=== PATIENT | female | born 1955 | race Caucasian/White ===

== ENCOUNTER 2017-03-19 20:43 | Inpatient (IN) | payer OTHER, MEDICARE ==
[~2017-03-19] VITALS: Ht 154.9 cm; Wt 92.9 kg
[~2017-03-19 20:43] MED LIST: ACETAMINOPHEN/HYDROcodone 325 MG/10 MG TAB PO PRN; ACETAMINOPHEN/HYDROcodone 325 MG/5 MG TAB PO PRN; ASPI81CH CHEW; ATOR20TA15 PO; FLUO20CA12 PO; FOLI400T PO; LEVEMIR SQ; LEVO125T4 PO; LIOT5TAB3 PO; LYRI150C PO; MAGNESIUM HYDROXIDE SUSP 30 ML CUP PO PRN; MORP1TAB27 PO; NALOXONE HCL 0.4 MG/ML AMP IV PUSH PRN; NOVOLOGSS; ONDANSETRON HCL 4 MG/2 ML VIAL IVP PRN; SODIUM CHLORIDE 0.9% FLUSH 10 ML FLUSH IV FLUSH PRN; TIZA6CAP3 PO; TRAM50TA PO; VENTAER INH; Vancomycin Consult Pharmacy 1 EA OTHER SCH; ZOLP10TA3 PO
[2017-03-19 20:50] VITALS: BP 140/88; PULSE 83; RESP 20; TEMP 98.1; O2SAT 99
[2017-03-19 21:15] VITALS: O2SAT 98
[2017-03-19] MEDS: CEFEPIME INJ 1,000 MG in SODIUM CHLORIDE 0.9% INJ 100 ML IV SCH (22:30)
[2017-03-19] MEDS: ENOXAPARIN SODIUM 40 MG/0.4 ML SYRINGE SQ SCH (22:30)
[2017-03-19] MEDS: SODIUM CHLORIDE 0.9% FLUSH 10 ML FLUSH IV FLUSH SCH (22:30)
[2017-03-19] MEDS: DOCUSATE SODIUM 50 MG/SENNA 8.6 MG TAB PO SCH (22:31)
[2017-03-19] MEDS ORDERED: PREGABALIN 75 MG CAP PO ONE (23:45)
[2017-03-19] MEDS ORDERED: DEXTROSE 50% IN WATER 50 ML VIAL(D50) IV PUSH PRN (23:45)
[2017-03-19] MEDS ORDERED: ZOLPIDEM TARTRATE 10 MG TAB PO ONE (23:45)
[2017-03-19] MEDS ORDERED: GLUCAGON 1 MG/ML VIAL OTHER PRN (23:45)
[2017-03-20] VITALS (8 sets, daily range): BP systolic 134–184; BP diastolic 77–96; PULSE 84–92; RESP 16–21; TEMP 97–99.6; O2SAT 93–99
[2017-03-20] MEDS ORDERED: VANCOMYCIN INJ 1,000 MG in SODIUM CHLOR 0.9% 250 ML INJ 250 ML IV SCH (02:00)
[2017-03-20] MEDS ORDERED: VANCOMYCIN INJ 1,500 MG in SODIUM CHLORID 0.9% 500 ML INJ 500 ML IV SCH (02:00)
[2017-03-20] MEDS: CEFEPIME INJ 1,000 MG in SODIUM CHLORIDE 0.9% INJ 100 ML IV SCH ×3 (05:40→21:40)
[2017-03-20 06:37] LABS: AUTOMATED NEUTROPHIL # 3.6 TH/MM3 (1.8-7.7); BASOPHIL # 0.1 TH/MM3 (0-0.2); BASOPHIL % 1.3 % (0.0-2.0); EOSINOPHIL # 0.1 TH/MM3 (0-0.4); EOSINOPHIL % 1.8 % (0.0-4.0); HEMATOCRIT 41.2 % (35.0-46.0); HEMO FLAGS DIFF FINAL; MEAN CELL VOLUME 81.7 FL (80.0-100.0); MEAN CORPUSCULAR HEMOGLOBIN 27.8 PG (27.0-34.0); MEAN CORPUSCULAR HGB CONC 34.1 % (32.0-36.0); MONO % 5.5 % (0.0-8.0); NEUT % 58.4 % (16.0-70.0); PLATELET COUNT 142 TH/MM3 (150-450); RED BLOOD COUNT 5.04 MIL/MM3 (4.00-5.30); RED CELL DISTRIBUTION WIDTH 12.4 % (11.6-17.2); WHITE BLOOD COUNT 6.1 TH/MM3 (4.0-11.0)
[2017-03-20 06:44] LABS: CHLORIDE 99 MEQ/L (98-107); POTASSIUM 4.6 MEQ/L (3.5-5.1); SODIUM (NA) 138 MEQ/L (136-145)
[2017-03-20 06:52] LABS: ANION GAP 5 MEQ/L (5-15); BICARBONATE 33.6 MEQ/L (21.0-32.0); BLOOD UREA NITROGEN 6 MG/DL (7-18)
[2017-03-20 06:55] LABS: ALT (GPT) 14 U/L (10-53); AST (GOT) 12 U/L (15-37); GLOMERULAR FILTRATION RATE 74 ML/MIN (>89)
[2017-03-20 06:56] LABS: TOTAL BILIRUBIN ADULT 0.8 MG/DL (0.2-1.0)
[2017-03-20 06:58] LABS: ALKALINE PHOSPHATASE 69 U/L (45-117)
[2017-03-20] MEDS: INSULIN ASPART SUPPLEMENTAL SCALE SQ SCH ×4 (08:36→21:38)
[2017-03-20] MEDS: LACTOBACILLUS ACIDOPHILUS TAB PO SCH ×3 (08:38→17:25)
[2017-03-20] MEDS: SODIUM CHLORIDE 0.9% FLUSH 10 ML FLUSH IV FLUSH SCH ×2 (08:38→21:39)
[2017-03-20] MEDS: DOCUSATE SODIUM 50 MG/SENNA 8.6 MG TAB PO SCH ×3 (08:40→21:45)
[2017-03-20] MEDS ORDERED: INFLUENZA VIRUS VACCINE (QUADRIVALENT) 0.5 ML SYR IM ONE (10:00)
--- NOTE | 2017-03-20 11:22 | HHI.HP ---
[facility] Primary Care Physician Brice Anaya MD Admission Diagnosis Diagnoses: (1) Cellulitis of great toe, left Diagnosis: Principal (2) Diabetes Diagnosis: Principal Chief Complaint: Left great toe pain Travel History International Travel<30 Days: No Contact w/Intl Traveler <30 Da: No Traveled to Known Affected Are: No History of Present Illness Written by Josh Parry, acting as scribe for Dr. Cameron on 03/20/17 at 11: 21. 61-year-old female with known history of hypertension, hyperlipidemia , hypothyroidism, diabetes, chronic respiratory failure, chronic obstructive pulmonary disease, anxiety, depression who presented to the ER at the request of her primary medical doctor for podiatry evaluation. Patient states that she is in normal state of health until a week ago when she tripped and injured her left great toe and foot. Patient states that she started developing worsening pain, swelling and redness so she went to her primary medical doctor's office 2 days ago and was started on Keflex. Her symptoms did not improve so she called her primary medical doctor who notified her to go to the ER to get evaluated by a warehouse distribution manager. Patient had workup done emergency department and recommended observation in the hospital for continued care and management. Patient denies any fever, chills, exudates, chest pain, shortness of breath, dyspnea, lightheadedness, dizziness Review of Systems Musculoskeletal: COMPLAINS OF: Joint pain Integumentary: COMPLAINS OF: Abnormal pigmentation Except as stated in HPI: all other systems reviewed are Neg Past Family Social History Past Medical History Hypertension Hyperlipidemia Diabetes Chronic respiratory failure, oxygen dependent Chronic obstructive pulmonary disease Anxiety Depression Past Surgical History Abdominal hernia surgery Hysterectomy Tonsillectomy Right leg surgery Cardiac catheterization Reported Medications Reported Meds & Active Scripts Active Reported Levemir Inj (Insulin Detemir) 1,000 unit/ 10 ML Vial 10 Units SQ BID Do not mix with any other Insulin. Novolog Inj (Insulin Aspart) 100 Unit/Ml Inj Ventolin Hfa 18 GM Inh (Albuterol Sulfate) 90 Mcg/Act Aer 2 Puff INH Q4H PRN Folic Acid 0.4 Mg Tab 400 Mcg PO DAILY Levothyroxine (Levothyroxine Sodium) 125 Mcg Tab 125 Mcg PO DAILY Zolpidem (Zolpidem Tartrate) 10 Mg Tab 10 Mg PO HS PRN Atorvastatin (Atorvastatin Calcium) 20 Mg Tab 20 Mg PO HS Fluoxetine (Fluoxetine HCl) 20 Mg Capsule 20 Mg PO DAILY Aspirin 81 Mg Chew 81 Mg CHEW DAILY Lyrica (Pregabalin) 150 Mg Cap 150 Mg PO TID Tramadol (Tramadol HCl) 50 Mg Tab 50 Mg PO Q4H PRN Tizanidine (Tizanidine HCl) 6 Mg Cap 6 Mg PO QID Morphine ER (Morphine Sulfate) 100 Mg Tab 100 Mg PO BID Allergies: Coded Allergies: Iodinated Contrast- Oral and IV Dye (Verified Allergy, Severe, Anaphylaxis , 03/19/17) Penicillins (Verified Allergy, Severe, Anaphylaxis, 03/19/17) baclofen (Verified Allergy, Severe, Confusion, 03/19/17) exenatide (Verified Allergy, Severe, Twitching, 03/19/17) quinine (Verified Allergy, Severe, Twitching, 03/19/17) Family History Reviewed is significant for mother with father with cancer, mother with kidney failure requiring transplant Social History Patient continue to smoke she is down to have a pack a cigarettes a day since she was 15 years old. Denies any alcohol or illicit drugs Physical Exam Vital Signs Vital Signs Date Time Temp Pulse Resp B/P (MAP) Pulse Ox O2 Delivery O2 Flow Rate FiO2 03/20/17 08:00 97.0 86 21 184/93 (123) 94 03/20/17 07:10 Nasal Cannula 3.00 03/20/17 04:00 98.4 84 16 134/77 (96) 93 03/20/17 02:44 Nasal Cannula 3.00 03/20/17 00:00 97.9 84 20 143/93 (110) 97 03/19/17 21:15 98 Nasal Cannula 2.00 03/19/17 20:50 98.1 83 20 140/88 (105) 99 Physical Exam GENERAL: Well-developed, well-nourished, in no acute distress. alert and orientated HEENT: Head is normocephalic without any lesions or masses noted. Facial features are symmetric. Eyes: Pupils equal round reactive to light. Extraocular muscles are intact. Conjunctivae were clear. Oropharyngeal: Pharynx without any erythema edema. Tongue is midline without deviation. Buccal mucosa is moist without any masses or lesions NECK: Supple without any masses. Trachea midline no deviation. No JVD, no bruits are appreciated CARDIAC: Regular rhythm, regular rate. S1/S2 are heard. 4/6 ejection murmur in aortic region. Gallops or rubs. LUNGS: Clear to auscultation bilaterally. No wheeze, rhonchi or rales. No use of accessory muscles on inspiration or expiration. ABDOMEN: Soft, nontender. Nondistended. Bowel sounds heard in all 4 quadrants. No organomegaly or masses. Negative rebound, negative guarding EXTREMITIES: No edema, pulses are equal bilaterally. No cyanosis or clubbing NEUROLOGY: Mood and affect appear appropriate. Cranial nerves II through XII grossly intact. Muscle strength 5/5 in upper and lower extremities bilaterally. Deep tendon reflexes are 2+ in upper and lower extremities bilaterally. LEFT GREAT TOE: Patient has significant erythema noted with the mild edema. There is granulation noted on the lateral edge of the toenail. Laboratory Laboratory Tests Test 03/20/17 04:53 White Blood Count 6.1 Red Blood Count 5.04 Hemoglobin 14.0 Hematocrit 41.2 Mean Corpuscular Volume 81.7 Mean Corpuscular Hemoglobin 27.8 Mean Corpuscular Hemoglobin Concent 34.1 Red Cell Distribution Width 12.4 Platelet Count 142 Mean Platelet Volume 8.9 Neutrophils (%) (Auto) 58.4 Lymphocytes (%) (Auto) 33.0 Monocytes (%) (Auto) 5.5 Eosinophils (%) (Auto) 1.8 Basophils (%) (Auto) 1.3 Neutrophils # (Auto) 3.6 Lymphocytes # (Auto) 2.0 Monocytes # (Auto) 0.3 Eosinophils # (Auto) 0.1 Basophils # (Auto) 0.1 CBC Comment DIFF FINAL Differential Comment Blood Urea Nitrogen 6 Creatinine 0.79 Random Glucose 175 Total Protein 6.3 Albumin 2.8 Calcium Level 8.7 Alkaline Phosphatase 69 Aspartate Amino Transf (AST/SGOT) 12 Alanine Aminotransferase (ALT/SGPT) 14 Total Bilirubin 0.8 Sodium Level 138 Potassium Level 4.6 Chloride Level 99 Carbon Dioxide Level 33.6 Anion Gap 5 Estimat Glomerular Filtration Rate 74 Result Diagram: 03/20/17 0453 03/20/17 0453 Caprini VTE Risk Assessment Caprini VTE Risk Assessment: Mod/High Risk (score >= 2) Caprini Risk Assessment Model Point Value = 1 Point Value = 2 Point Value = 3 Point Value = 5 Age 41-60 Minor surgery BMI > 25 kg/m2 Swollen legs Varicose veins or History of unexplained or recurrent spontaneous Oral contraceptives or hormone replacement Sepsis (< 1 month) Serious lung disease, including pneumonia (< 1 month) Abnormal pulmonary function Acute myocardial infarction Congestive heart failure (< 1 month) History of inflammatory bowel disease Medical patient at bed rest Age 61-74 Arthroscopic surgery Major open surgery (> 45 min) Laparoscopic surgery (> 45 min) Malignancy Confined to bed (> 72 hours) Immobilizing plaster cast Central venous access Age >= 75 History of VTE Family history of VTE Factor V Leiden Prothrombin [id number] Lupus anticoagulant Anticardiolipin antibodies Elevated serum homocysteine Heparin-induced thrombocytopenia Other congenital or acquired thrombophilia Stroke (< 1 month) Elective arthroplasty Hip, pelvis, or leg fracture Acute spinal cord injury (< 1 month) Prophylaxis Regimen Total Risk Factor Score Risk Level Prophylaxis Regimen 0-1 Low Early ambulation 2 Moderate Order ONE of the following: *Sequential Compression Device (SCD) *Heparin 5000 units SQ BID 3-4 Higher Order ONE of the following medications: *Heparin 5000 units SQ TID *Enoxaparin/Lovenox 40 mg SQ daily (WT < 150 kg, CrCl > 30 mL/min) *Enoxaparin/Lovenox 30 mg SQ daily (WT < 150 kg, CrCl > 10-29 mL/min) *Enoxaparin/Lovenox 30 mg SQ BID (WT < 150 kg, CrCl > 30 mL/min) AND/OR *Sequential Compression Device (SCD) 5 or more Highest Order ONE of the following medications: *Heparin 5000 units SQ TID (Preferred with Epidurals) *Enoxaparin/Lovenox 40 mg SQ daily (WT < 150 kg, CrCl > 30 mL/min) *Enoxaparin/Lovenox 30 mg SQ daily (WT < 150 kg, CrCl > 10-29 mL/min) *Enoxaparin/Lovenox 30 mg SQ BID (WT < 150 kg, CrCl > 30 mL/min) AND *Sequential Compression Device (SCD) Assessment and Plan Assessment and Plan Left great toe cellulitis Complicated with patient diabetic, chronic smoker, failing outpatient treatment Continue vancomycin, cefepime Podiatry consulted for recommendations, plans for surgical intervention today Continue pain control Diabetes Accu-Cheks with sliding scale insulin Hypertension Vasotec as needed Chronic respiratory failure, oxygen dependent with chronic obstructive pulmonary disease Continue O2 supplementation maintain O2 sats greater than 92% Duo nebs as needed Incentive spirometry DVT prevention Lovenox Discussed Condition With This note was transcribed by scribe [Josh Parry ]. I, Dr. Ej Cameron personally performed the history, physical exam, and medical decision making; and confirmed the accuracy of the information in the transcribed note. Authenticated by Dr. Ej Cameron 03/20/17 at 11:21. Physician Certification 2 Midnight Certification Type: Admission for Inpatient Services Order for Inpatient Services The services are ordered in accordance with Medicare regulations or non- Medicare payer requirements, as applicable. In the case of services not specified as inpatient-only, they are appropriately provided as inpatient services in accordance with the 2-midnight benchmark. Estimated LOS (days): 2 days is the estimated time the patient will need to remain in the hospital, assuming treatment plan goals are met and no additional complications. Post-Hospital Plan: Not yet determined Josh Parry Mar 20, 2017 11:22 Ej Cameron MD Mar 20, 2017 11:22
[2017-03-20] MEDS ORDERED: ZOLPIDEM TARTRATE 10 MG TAB PO PRN (11:45)
[2017-03-20] MEDS ORDERED: RESP: ALBUTEROL 2.5 MG/IPRATROPIUM 0.5 MG NEB (PRN) NEB (11:45)
[2017-03-20] MEDS ORDERED: ENALAPRILAT 1.25 MG/ML VIAL IV PUSH PRN (11:45)
[2017-03-20] MEDS: FLUoxetine HCL 20 MG CAP PO SCH (12:22)
[2017-03-20] MEDS: ASPIRIN 81 MG CHEW TAB CHEW SCH (12:22)
[2017-03-20] MEDS: PREGABALIN 75 MG CAP PO SCH ×2 (12:22→17:25)
[2017-03-20] MEDS ORDERED: traMADol HCL 50 MG TAB PO PRN (12:30)
[2017-03-20] MEDS ORDERED: MORPHINE SULFATE 100 MG CONTROLLED RELEASE TAB PO SCH (12:30)
[2017-03-20] MEDS: LEVOTHYROXINE SODIUM 125 MCG TAB PO SCH (12:34)
[2017-03-20] MEDS ORDERED: MORPHINE SULFATE 60 MG CONTROLLED RELEASE TAB PO ONE (14:00)
[2017-03-20] MEDS: RESP: ALBUTEROL 2.5 MG/IPRATROPIUM 0.5 MG NEB (SCH) NEB ×2 (17:13→20:55)
[2017-03-20] MEDS: ENOXAPARIN SODIUM 40 MG/0.4 ML SYRINGE SQ SCH (17:25)
--- NOTE | 2017-03-20 17:54 | MB ---
cc: BECKA BANSAL DPM DATE OF CONSULTATION: 03/20/2017 REASON FOR CONSULTATION: Left hallux paronychia. HISTORY OF PRESENT ILLNESS This is a 61-year-old female with past medical history of hypertension, hyperlipidemia, hyperthyroidism, diabetes is chronic respiratory failure right knee effusion with depression who requested by her primary medical doctor for podiatric evaluation. She was in normal health until approximately week ago she tripped and fell left foot. She developed worsening of pain. The patient was on Keflex and had no decrease in redness or drainage of the hallux past medical history is a previously stated, outpatient medications were reviewed, taking Keflex. ALLERGIES QUININE EXENATIDE BACLOFEN PENICILLIN IODINE CONTRAST INPATIENT MEDICATIONS: She is receiving vancomycin, cefepime. Please see complete med list in chart. PHYSICAL EXAMINATION VITAL SIGNS: Temperature 99.6, pulse 90, respiratory rate 20, blood pressure 176/83. She is satting 99% on 3 liters nasal cannula. IN GENERAL: This is an alert and oriented female seen bedside exhibiting minimally labored respirations. EXTREMITIES: Left lower extremities examined. There is bruising and edema of the dorsal lateral foot. No crepitus or instability or warmth noted upon visualizing the left hallux. There is fluctuance and erythema of the medial corner of the nail obvious ingrown toenail with purulent subungual abscess noted. Pedal pulses fully palpable. Sensation decreased to light touch right lower extremity unremarkable for any wounds. LABORATORY FINDINGS White blood cell 6.1, hemoglobin/hematocrit 14 41, platelet count is 142. Chem-7 sodium 138, potassium 4.6, chloride 99, CO2 33.6, BUN is 08/06, random glucose 175, creatinine 0.79. IMAGING: Imaging findings focused toe no obvious bony erosive process. There does appear to be slight increased soft tissue swelling. I actually reviewed beyond the foot to see there is any fracture. No obvious fracture seen and three views ASSESSMENT/PLAN Left hallux paronychia with left foot sprain recommendation is for a bedside procedure. The patient was consented educated on risks and benefits including but not limited to need for more surgery at a low later date if not possible antibiotics progressing to bone infection. The patient consented. The patient was anesthetized utilizing 1% lidocaine plain. Upon verifying anesthesia a Elcho elevator was introduced into the medial corner of the nail, there is noted to be a small purulent abscess and granuloma this was sharply excised utilizing an nail nipper, the wound was then packed open a dry sterile bandage applied. The patient tolerated procedure well recommendation is to monitor culture likely of the outpatient basis. The patient has significant improvement a more broad-spectrum antibiotic is likely indicated. I might recommend Bactrim DS the patient is clear followup outpatient, wound care orders are soaking in warm water an Epsom salts nightly, starting within the next 24 hours. I am not sure if we have Epsom salts in the hospital, the nurse will be ordered to change the bandage. Podiatry will sign off at this time, reconsult as needed. FINA Perez/ivan /4:16 PM /4:50 PM
[2017-03-20] MEDS ORDERED: VANCOMYCIN INJ 1,800 MG in SODIUM CHLORID 0.9% 500 ML INJ 500 ML IV SCH (21:00)
[2017-03-20] MEDS ORDERED: ATORVASTATIN 20 MG TAB PO SCH (21:00)
[2017-03-20] MEDS: MORPHINE SULFATE 100 MG CONTROLLED RELEASE TAB PO SCH (21:37)
[2017-03-21 00:21] VITALS: BP 99/54; PULSE 81; RESP 16; TEMP 98.8; O2SAT 93
[2017-03-21] MEDS: RESP: ALBUTEROL 2.5 MG/IPRATROPIUM 0.5 MG NEB (SCH) NEB ×2 (03:28→09:35)
[2017-03-21] MEDS: CEFEPIME INJ 1,000 MG in SODIUM CHLORIDE 0.9% INJ 100 ML IV SCH (05:20)
[2017-03-21] MEDS: LEVOTHYROXINE SODIUM 125 MCG TAB PO SCH (05:20)
[2017-03-21 07:50] VITALS: BP 155/81; PULSE 87; RESP 20; TEMP 98.9; O2SAT 91
[2017-03-21] MEDS: ASPIRIN 81 MG CHEW TAB CHEW SCH (08:24)
[2017-03-21] MEDS: DOCUSATE SODIUM 50 MG/SENNA 8.6 MG TAB PO SCH (08:24)
[2017-03-21] MEDS: PREGABALIN 75 MG CAP PO SCH ×2 (08:24→12:04)
[2017-03-21] MEDS: FLUoxetine HCL 20 MG CAP PO SCH (08:24)
[2017-03-21] MEDS: LACTOBACILLUS ACIDOPHILUS TAB PO SCH ×2 (08:24→12:04)
[2017-03-21] MEDS: INSULIN ASPART SUPPLEMENTAL SCALE SQ SCH ×2 (08:35→12:43)
[2017-03-21 09:39] VITALS: O2SAT 98
[2017-03-21 11:50] VITALS: BP 134/76; PULSE 85; RESP 20; TEMP 98.4; O2SAT 98
[2017-03-21] MEDS: MORPHINE SULFATE 100 MG CONTROLLED RELEASE TAB PO SCH (12:03)
[2017-03-21] MEDS ORDERED: BACT800T5 PO (13:49)
[2017-03-21] MEDS ORDERED: RESP: ALBUTEROL 2.5 MG/IPRATROPIUM 0.5 MG NEB (SCH) NEB (14:00)
--- NOTE | 2017-03-21 16:55 | HHI.PR ---
Subjective Remarks seen earlier today , doing better , cleared for dc by podiatry on bactrim Objective Vitals Vital Signs Date Time Temp Pulse Resp B/P (MAP) Pulse Ox O2 Delivery O2 Flow Rate FiO2 03/21/17 12:15 96 Nasal Cannula 3.00 03/21/17 11:50 98.4 85 20 134/76 (95) 98 03/21/17 09:39 98 Nasal Cannula 2.00 03/21/17 07:50 98.9 87 20 155/81 (105) 91 03/21/17 04:23 03/21/17 00:21 98.8 81 16 99/54 (69) 93 03/20/17 22:00 98.9 92 18 179/86 (117) 96 03/20/17 21:00 Nasal Cannula 3.00 03/20/17 20:56 96 Nasal Cannula 2.00 03/20/17 18:18 16 03/20/17 17:16 98 21 I/O 03/20/17 03/20/17 03/20/17 03/21/17 03/21/17 03/21/17 07:00 15:00 23:00 07:00 15:00 23:00 Intake Total 1430 ml 100 ml 900 ml 855 ml Balance 1430 ml 100 ml 900 ml 855 ml Intake Oral 800 ml 240 ml IV Total 1430 ml 100 ml 100 ml 615 ml # Voids 1 5 4 # Bowel Movements 0 Result Diagram: 03/20/17 0453 03/20/17 0453 Objective Remarks GENERAL: This is a well-nourished, well-developed patient, in no apparent distress. CARDIOVASCULAR: Regular rate and rhythm without murmurs, gallops, or rubs. RESPIRATORY: Clear to auscultation. Breath sounds equal bilaterally. No wheezes , rales, or rhonchi. GASTROINTESTINAL: Abdomen soft, non-tender, nondistended. Normal active bowel sounds MUSCULOSKELETAL: Extremities without clubbing, cyanosis, or edema. NEURO: Alert & Oriented x4 to person, place, time, situation. Moves all ext x4 A/P Problem List: (1) Cellulitis of great toe, left ICD Code: L03.032 - Cellulitis of left toe (2) Diabetes ICD Code: E11.9 - Type 2 diabetes mellitus without complications Assessment and Plan Left great toe cellulitis Complicated with patient diabetic, chronic smoker, failing outpatient treatment Continue vancomycin, cefepime Podiatry consulted appreciate his recommendations, s/p bedside i/d by podiatry , cleared for dc on bactrim , ff in 1 week Continue pain control Diabetes Accu-Cheks with sliding scale insulin Hypertension Vasotec as needed Chronic respiratory failure, oxygen dependent with chronic obstructive pulmonary disease Continue O2 supplementation maintain O2 sats greater than 92% Duo nebs as needed Incentive spirometry DVT prevention Lovenox Discharge Planning Discharge patient to home Condition on discharge: Improved HH D Diet as tolerated Ad Nini activity Rx written:clarke bunn Follow-up with primary care physician Ej Cameron MD Mar 21, 2017 16:55
[2017-03-22] MEDS ORDERED: PHARMACY ORDERED LAB ONE (20:45)
== END 2017-03-21 15:59 | disposition home or self-care (01) | DRG 603 ==
LOC: PHEDDLT 20:43 → PH3B 20:44
PROVIDERS: ADMIT Hospitalist; ATTEND Hospitalist
PROC: 0H9NXZX Drainage of Left Foot Skin, External Approach, Diagnostic (ICD-10-PCS; principal; 2017-03-20)
DX: L02.612 Cutaneous abscess of left foot (principal); J96.10 Chronic respiratory failure, unspecified whether with hypoxia or hypercapnia; Z99.81 Dependence on supplemental oxygen; L03.032 Cellulitis of left toe; I10 Essential (primary) hypertension; E11.9 Type 2 diabetes mellitus without complications; E03.9 Hypothyroidism, unspecified; J44.9 Chronic obstructive pulmonary disease, unspecified; F32.9 Major depressive disorder, single episode, unspecified; E78.5 Hyperlipidemia, unspecified; F41.9 Anxiety disorder, unspecified; Z79.4 Long term (current) use of insulin; Z79.82 Long term (current) use of aspirin; F17.210 Nicotine dependence, cigarettes, uncomplicated
CPT/HCPCS: 73660; 80053; 82948; 83605; 85025; 85610; 85730; 86403; 87040; 87070; 87205; 90686; 94150; 94640; 94664; 96365; 96367; J0692; J1650; J1815; J3370; J7030; J7040; J7050; Q2038